=== PATIENT | male | born 1960 | race Caucasian/White ===

== ENCOUNTER 2017-12-22 10:17 | Day surgery (SDC) | payer OTHER ==
[2017-12-22] MEDS ORDERED: PROPOFOL 20 ML (10:25)
[2017-12-22] MEDS ORDERED: PROPOFOL 60 ML (15:06)
[2017-12-22] MEDS ORDERED: LIDOCAINE 2% (SDV) 5 ML INJ (15:06)
== END 2017-12-22 16:22 | disposition home or self-care (01) ==
LOC: GIL 10:17
DX: Z12.11 Encounter for screening for malignant neoplasm of colon (principal); K29.70 Gastritis, unspecified, without bleeding; I85.00 Esophageal varices without bleeding; K76.6 Portal hypertension; K31.89 Other diseases of stomach and duodenum; E66.9 Obesity, unspecified; Z68.36 Body mass index [BMI] 36.0-36.9, adult
CPT/HCPCS: 43239; 88305; 88312

== ENCOUNTER 2018-01-23 08:30 | Emergency (ER) | payer OTHER ==
[2018-01-23 10:57] LABS: ALANINE AMINOTRANSFERASE 23 IU/L (13-69); ALBUMIN 2.8 g/dl (3.3-4.9); ALKALINE PHOSPHATASE 225 IU/L (42-121); ANION GAP 16 (8-16); ASPARTATE AMINO TRANSFERASE 39 IU/L (15-46); BILIRUBIN,INDIRECT 0.8 mg/dl (0-1.1); BILIRUBIN,TOTAL 0.8 mg/dl (0.2-1.3); BLOOD UREA NITROGEN 14 mg/dl (7-20); CALCIUM 8.4 mg/dl (8.4-10.2); CARBON DIOXIDE 24 mmol/L (21-31); CHLORIDE 107 mmol/L (97-110); CREATININE 0.77 mg/dl (0.61-1.24); GLUCOSE 106 mg/dl (70-220); POTASSIUM 3.7 mmol/L (3.5-5.1); SODIUM 143 mmol/L (135-144); TOTAL PROTEIN 6.8 g/dl (6.1-8.1)
[2018-01-23 10:59] LABS: INR 1.47; PROTIME 18.1 Sec (11.9-14.9); PT RATIO 1.4
[2018-01-23 11:00] LABS: PARTIAL THROMBOPLASTIN TIME 49.9 Sec (25.0-35.0)
== END 2018-01-23 12:07 | disposition home or self-care (01) ==
LOC: E/R 08:30
DX: K70.31 Alcoholic cirrhosis of liver with ascites (principal); Z87.891 Personal history of nicotine dependence
CPT/HCPCS: 80053; 85610; 85730; 99283

== ENCOUNTER 2018-04-09 20:58 | Inpatient (IN) | payer OTHER ==
[2018-04-09] MEDS: SOD CHLORIDE 0.9% 1,000 ML IV (21:15)
[2018-04-09 21:34] LABS: ABNORMAL IP MESSAGE 1; HEMATOCRIT 23.9 % (42.0-52.0); MEAN CORPUSCULAR HEMOGLOBIN 21.7 pg (29.0-33.0); MEAN CORPUSCULAR HGB CONC 26.4 g/dl (32.0-37.0); MEAN CORPUSCULAR VOLUME 82.4 fl (82.0-101.0); MEAN PLATELET VOLUME 11.2 fl (7.4-10.4); NUCLEATED RED BLOOD CELLS% 0.7 /100WBC (0.0-0.0); PLATELET COUNT 192 10^3/UL (140-415); POSITIVE DIFF @See below; RED CELL DISTRIBUTION WIDTH 19.8 % (11.5-14.5)
[2018-04-09 21:34] LABS: WHITE BLOOD COUNT 27.4 10^3/ul (4.8-10.8)
[2018-04-09] MEDS ORDERED: NORepinephrine 8MG/250 ML (PMX 250 ML (21:36)
[2018-04-09 21:43] LABS: ADD MAN DIFF? YES; HEMOGLOBIN 6.3 g/dl (14.0-18.0)
[2018-04-09 21:44] LABS: PATH REVIEW? YES
[2018-04-09 21:48] LABS: PROTIME 21.3 Sec (11.9-14.9); PT RATIO 1.7
[2018-04-09 21:55] LABS: ALANINE AMINOTRANSFERASE 35 IU/L (13-69); ALBUMIN 2.4 g/dl (3.3-4.9); ALBUMIN/GLOBULIN RATIO 0.63; ALKALINE PHOSPHATASE 227 IU/L (42-121); ANION GAP 18 (8-16); ASPARTATE AMINO TRANSFERASE 64 IU/L (15-46); BLOOD UREA NITROGEN 46 mg/dl (7-20); CALCIUM 8.5 mg/dl (8.4-10.2); CARBON DIOXIDE 15 mmol/L (21-31); CHLORIDE 111 mmol/L (97-110); CREATININE 3.29 mg/dl (0.61-1.24); SODIUM 138 mmol/L (135-144); TOTAL PROTEIN 6.2 g/dl (6.1-8.1)
[2018-04-09 22:04] LABS: B-TYPE NATRIURETIC PEPTIDE 2030 PG/ML (0-125)
[2018-04-09 22:09] LABS: TROPONIN-I < 0.012 ng/ml (0.000-0.120)
[2018-04-09 22:11] LABS: AADO2 Arterial 553.9 mmHg (7.0-24.0); Allen Test ACCEPTAB; Arterial Base Excess -16.4 mmol/L (-3.0-3); Arterial COHb 1.6 % (0.0-3.0); Arterial Fraction of Oxyhgb 93.8 % (93.0-99.0); Arterial HCO3 12.9 mmol/L (22.0-26.0); Arterial MetHb 0.7 % (0.0-1.5); Arterial Total Hemglobin 6.9 g/dl (12.0-18.0); Arterial pCO2 48.1 mmhg (35-45); GLUCOSE 42 mg/dl (70-220); MODE VENT - AC; POTASSIUM 6.3 mmol/L (3.5-5.1); Site Right Radial
[2018-04-09] MEDS: NORepinephrine 8MG/250 ML (PMX 250 ML IV (22:17)
[2018-04-09] MEDS: SODIUM CHLORIDE 0.9% 500 ML BAG IV* (22:18)
[2018-04-09 22:20] LABS: PARTIAL THROMBOPLASTIN TIME 81.5 Sec (25.0-35.0)
[2018-04-09] MEDS: DEXTROSE 50% 50 ML SYRINGE IV (22:31)
[2018-04-09 22:34] LABS: PHOSPHORUS 9.2 mg/dl (2.5-4.9)
[2018-04-09 22:34] LABS: MAGNESIUM 2.8 mg/dl (1.7-2.5)
[2018-04-09 23:14] LABS: ADD UMIC YES; UR ASCORBIC ACID 40 mg/dL (NEGATIVE); UR BACTERIA FEW /HPF (NONE SEEN); UR BILIRUBIN (Dip) NEGATIVE (NEGATIVE); UR BLOOD (Dip) NEGATIVE (NEGATIVE); UR CLARITY SLIGHTLY CLOUDY (CLEAR); UR COLOR YELLOW (YELLOW); UR GLUCOSE (Dip) NEGATIVE (NEGATIVE); UR HYALINE CAST FEW /HPF (NONE SEEN); UR KETONES (Dip) NEGATIVE (NEGATIVE); UR LEUKOCYTE ESTERASE (Dip) TRACE Leu/ul (NEGATIVE); UR NITRITE (Dip) NEGATIVE (NEGATIVE); UR RBC 0 /HPF (0-5); UR SPECIFIC GRAVITY (Dip) 1.014 (1.003-1.030); UR TOTAL PROTEIN (Dip) NEGATIVE (NEGATIVE); UR UROBILINOGEN (Dip) NEGATIVE (NEGATIVE); UR WBC 2 /HPF (0-5)
[2018-04-09 23:18] LABS: ANISOCYTOSIS 2+ (0-0); BAND NEUTROPHILS #M 9.8 10^3/ul (0.0-0.6); BAND NEUTROPHILS % (M) 36 % (0-4); ECHINOCYTOSIS 1+ (0-0); EOSINOPHILS % (M) 2 % (0-7); HYPOCHROMASIA 2+ (0-0); LYMPHOCYTES #M 5.7 10^3/ul (0.8-2.9); LYMPHOCYTES % (M) 21 % (15-51); METAMYELOCYTES #M 0.2 10^3/ul (0.0-0.0); METAMYELOCYTES %M 1 % (0-0); MICROCYTOSIS 1+ (0-0); MONOCYTE #M 0.5 10^3/ul (0.3-0.9); MONOCYTES % (M) 2 % (0-11); MYELOCYTES #M 0.5 10^3/ul (0.0-0.0); MYELOCYTES % (M) 2 % (0-0); OVALOCYTES 1+ (0-0); PLATELET ESTIMATE NORMAL; POIKILOCYTOSIS 1+ (0-0); POLYCHROMASIA 2+ (0-0); SEG NEUT #M 12.5 10^3/ul (1.6-7.5); SEGMENTED NEUTROPHILS (M) % 36 % (39-77); SMUDGE%M 4 % (0-0)
[2018-04-10] LABS: AMYLASE 376 U/L (11-123)
[2018-04-10] LABS: CREATINE KINASE 87 IU/L (23-200); LIPASE 1501 U/L (23-300)
[2018-04-10] MEDS: SOD CHLORIDE 0.9% 1,000 ML IV (00:01)
[2018-04-10 00:13] LABS: CK INDEX 2.4; TROPONIN-I 0.052 ng/ml (0.000-0.120)
[2018-04-10 00:20] LABS: CK-MB 2.08 ng/ml (0.0-2.4)
[2018-04-10] MEDS ORDERED: ACETAMINOPHEN 325 MG TAB PO ×2 (00:30→01:00)
[2018-04-10] MEDS ORDERED: ONDANSETRON 4 MG INJ IV ×2 (00:30→01:00)
[2018-04-10 00:41] LABS: D-DIMER > 10000.00 ng/ml (<460)
[2018-04-10 00:47] LABS: LACTIC ACID 6.1 mmol/L (0.5-2.0)
[2018-04-10] MEDS: DOCUSATE SODIUM 100 MG CAP PO ×2 (01:00→13:00)
[2018-04-10] MEDS ORDERED: PROPOFOL 100 ML IV (01:00)
[2018-04-10] MEDS ORDERED: ALBUTEROL HFA 8 GM INHALER INH (01:00)
[2018-04-10] MEDS ORDERED: ACETAMINOPHEN 650 MG SUPP PR (01:00)
[2018-04-10] MEDS ORDERED: LORAZEPAM 2 MG INJ IV (01:00)
[2018-04-10] MEDS: CEFEPIME 2GM/50 ML (PMX) 50 ML IVPB (01:04)
[2018-04-10 01:18] LABS: IMMEDIATE SPIN CROSSMATCH 1
[2018-04-10] MEDS: NA POLYST SULFON 15 GM/60 ML BTL PO (01:30)
[2018-04-10] MEDS: VANCOMYCIN 1 GM (PMX) 250 ML IVPB (02:17)
[2018-04-10] MEDS: DEXTROSE 5%-0.45% NACL 1,000 ML IV (02:18)
[2018-04-10] MEDS ORDERED: VANCOMYCIN IV PER PHARMACY XX (02:30)
[2018-04-10] MEDS: NORepinephrine 8MG/250 ML (PMX 250 ML IV (02:33)
[2018-04-10 02:35] LABS: AADO2 Arterial 622.1 mmHg (7.0-24.0); Allen Test ACCEPTAB; Arterial Base Excess -14.3 mmol/L (-3.0-3); Arterial Fraction of Oxyhgb 93.4 % (93.0-99.0); Arterial HCO3 13.1 mmol/L (22.0-26.0); Arterial MetHb 0.7 % (0.0-1.5); Arterial Total Hemglobin 7.5 g/dl (12.0-18.0); Arterial pCO2 30.8 mmhg (35-45); MODE VENT - AC; Site Right Radial; Temperature 32.9 C
[2018-04-10 03:08] LABS: LACTIC ACID 6.1 mmol/L (0.5-2.0)
[2018-04-10] MEDS: PHENYLephrine 20MG IN 250 ML 250 ML IV ×3 (03:13→06:02)
[2018-04-10] MEDS: CALCIUM GLUCONATE 10% 1 GM in DEXTROSE 5% 100 ML IVPB (03:43)
[2018-04-10] MEDS ORDERED: DEXTROSE 50% 50 ML SYRINGE IV (04:30)
[2018-04-10] MEDS ORDERED: DOPamine-D5W 1.6 MG/ML 250 ML ×2 (04:36→11:54)
[2018-04-10] MEDS: DOPamine-D5W 1.6 MG/ML 250 ML IV ×2 (04:48→08:55)
[2018-04-10] MEDS: DEXTROSE 50% 50 ML SYRINGE IV (04:56)
[2018-04-10] MEDS: PIPER-TAZO 2.25 GM (PMX) 50 ML IVPB ×4 (04:56→20:48)
[2018-04-10] MEDS: ACCU-CHEK XX ×18 (04:58→23:00)
[2018-04-10] MEDS ORDERED: VECURONIUM 100 MG in DEXTROSE 5% 100 ML IV (05:00)
[2018-04-10] MEDS: MIDAZOLAM (DRIP) 50 mg/50 mL 50 ML IV ×4 (05:34→22:09)
[2018-04-10 05:56] LABS: ABNORMAL IP MESSAGE 1; HEMATOCRIT 26.3 % (42.0-52.0); HEMOGLOBIN 7.3 g/dl (14.0-18.0); MEAN CORPUSCULAR HEMOGLOBIN 22.6 pg (29.0-33.0); MEAN CORPUSCULAR HGB CONC 27.8 g/dl (32.0-37.0); MEAN CORPUSCULAR VOLUME 81.4 fl (82.0-101.0); MEAN PLATELET VOLUME 11.1 fl (7.4-10.4); NUCLEATED RED BLOOD CELLS% 0.3 /100WBC (0.0-0.0); PLATELET COUNT 196 10^3/UL (140-415); POSITIVE DIFF @See below; RED BLOOD COUNT 3.23 10^6/ul (4.70-6.10); RED CELL DISTRIBUTION WIDTH 19.3 % (11.5-14.5)
[2018-04-10 05:56] LABS: WHITE BLOOD COUNT 23.7 10^3/ul (4.8-10.8)
[2018-04-10 06:16] LABS: ADD MAN DIFF? YES
[2018-04-10 06:21] LABS: INR 2.32; PROTIME 26.1 Sec (11.9-14.9)
[2018-04-10 06:22] LABS: AMYLASE 358 U/L (11-123); LIPASE 799 U/L (23-300); PARTIAL THROMBOPLASTIN TIME 61.4 Sec (25.0-35.0)
[2018-04-10 06:38] LABS: TROPONIN-I 0.141 ng/ml (0.000-0.120)
[2018-04-10] MEDS: VANCOMYCIN 1 GM in 250 ML IVPB (06:43)
[2018-04-10 06:50] LABS: ALBUMIN/GLOBULIN RATIO 0.54; ANION GAP 16 (8-16)
[2018-04-10] MEDS ORDERED: IPRATROPIUM (NEB) 0.5 MG/2.5 ML AMP INH (07:00)
[2018-04-10 07:10] LABS: LACTIC ACID 6.3 mmol/L (0.5-2.0)
[2018-04-10 07:10] LABS: ASPARTATE AMINO TRANSFERASE 155 IU/L (15-46); BLOOD UREA NITROGEN 47 mg/dl (7-20); CARBON DIOXIDE 14 mmol/L (21-31); CHLORIDE 114 mmol/L (97-110); CREATININE 3.45 mg/dl (0.61-1.24); GLUCOSE 109 mg/dl (70-220); MAGNESIUM 2.1 mg/dl (1.7-2.5); POTASSIUM 5.1 mmol/L (3.5-5.1); SODIUM 139 mmol/L (135-144)
[2018-04-10 07:11] LABS: ALANINE AMINOTRANSFERASE 67 IU/L (13-69); ALBUMIN 1.7 g/dl (3.3-4.9); ALKALINE PHOSPHATASE 147 IU/L (42-121); BILIRUBIN,INDIRECT 1.3 mg/dl (0-1.1); BILIRUBIN,TOTAL 1.3 mg/dl (0.2-1.3); TOTAL PROTEIN 4.8 g/dl (6.1-8.1)
[2018-04-10] MEDS: PHENYLephrine 80 MG in DEXTROSE 5% 492 ML IV ×4 (07:13→20:12)
[2018-04-10] MEDS: NORepinephrine 32 MG in DEXTROSE 5% 218 ML IV ×2 (07:22→21:02)
[2018-04-10] MEDS: VASOPRESSIN 60 UNIT in DEXTROSE 5% 57 ML IV ×2 (07:38→19:00)
[2018-04-10] MEDS: FAMOTIDINE 20 MG INJ IV (08:34)
[2018-04-10 08:42] LABS: PHOSPHORUS 6.8 mg/dl (2.5-4.9)
[2018-04-10 09:09] LABS: AADO2 Arterial 615.2 mmHg (7.0-24.0); Allen Test ACCEPTAB; Arterial Base Excess -17.7 mmol/L (-3.0-3); Arterial Blood Gas Oxygen Sat 95.8 mmHG (95.0-98.0); Arterial COHb 0.9 % (0.0-3.0); Arterial Fraction of Oxyhgb 94.6 % (93.0-99.0); Arterial HCO3 10.6 mmol/L (22.0-26.0); Arterial MetHb 0.4 % (0.0-1.5); Arterial pCO2 29.4 mmhg (35-45); MODE VENT - AC; Site Right Radial; Temperature 33.1 C
[2018-04-10] MEDS: NA BICARBONATE 8.4% 50 ML SYG IV ×2 (09:27→15:41)
[2018-04-10] MEDS: morphine 2 MG INJ IV (09:34)
[2018-04-10 11:00] LABS: IMMEDIATE SPIN CROSSMATCH 1 5
[2018-04-10] MEDS: SODIUM BICARBONATE (IV ADD) 100 MEQ in DEXTROSE 5% 1,000 ML IV ×3 (11:14→22:29)
[2018-04-10 12:23] LABS: WHITE BLOOD COUNT 25.3 10^3/ul (4.8-10.8)
[2018-04-10 12:23] LABS: ABNORMAL IP MESSAGE 1; ADD MAN DIFF? YES; HEMATOCRIT 27.1 % (42.0-52.0); HEMOGLOBIN 7.8 g/dl (14.0-18.0); MEAN CORPUSCULAR HEMOGLOBIN 24.1 pg (29.0-33.0); MEAN CORPUSCULAR HGB CONC 28.8 g/dl (32.0-37.0); MEAN CORPUSCULAR VOLUME 83.6 fl (82.0-101.0); NUCLEATED RED BLOOD CELLS% 0.2 /100WBC (0.0-0.0); PLATELET COUNT 152 10^3/UL (140-415); POSITIVE DIFF @See below; RED BLOOD COUNT 3.24 10^6/ul (4.70-6.10); RED CELL DISTRIBUTION WIDTH 18.8 % (11.5-14.5)
[2018-04-10 12:32] LABS: AMYLASE 301 U/L (11-123); ANION GAP 22 (8-16); BLOOD UREA NITROGEN 45 mg/dl (7-20); CALCIUM 7.6 mg/dl (8.4-10.2); CARBON DIOXIDE 13 mmol/L (21-31); CHLORIDE 105 mmol/L (97-110); CREATININE 3.04 mg/dl (0.61-1.24); GLUCOSE 233 mg/dl (70-220); LIPASE 481 U/L (23-300); POTASSIUM 5.1 mmol/L (3.5-5.1); SODIUM 135 mmol/L (135-144)
[2018-04-10 12:35] LABS: INR 2.42; PT RATIO 2.1
[2018-04-10] MEDS: FENTAnyl (DRIP) 1000 mcg/100mL 100 ML IV (12:35)
[2018-04-10] MEDS: DOPamine 1,600 MG in DEXTROSE 5% 210 ML IV ×2 (12:35→21:03)
[2018-04-10 12:36] LABS: PARTIAL THROMBOPLASTIN TIME 61.1 Sec (25.0-35.0)
[2018-04-10 12:37] LABS: PARTIAL THROMBOPLASTIN TIME 61.1 Sec (25.0-35.0)
[2018-04-10 12:43] LABS: TROPONIN-I 0.084 ng/ml (0.000-0.120)
[2018-04-10] MEDS: INSULIN HUMAN REGULAR 100 UNIT in SOD CHLORIDE 0.9% 99 ML IV (13:46)
[2018-04-10 13:47] LABS: ANISOCYTOSIS 2+ (0-0); BAND NEUTROPHILS #M 10.6 10^3/ul (0.0-0.6); BAND NEUTROPHILS % (M) 42 % (0-4); HYPOCHROMASIA 1+ (0-0); LYMPHOCYTES #M 1.2 10^3/ul (0.8-2.9); LYMPHOCYTES % (M) 5 % (15-51); MICROCYTOSIS 1+ (0-0); MONOCYTE #M 0.5 10^3/ul (0.3-0.9); MONOCYTES % (M) 2 % (0-11); PLATELET ESTIMATE NORMAL; POIKILOCYTOSIS 3+ (0-0); POLYCHROMASIA 3+ (0-0); SEG NEUT #M 15.6 10^3/ul (1.6-7.5); SEGMENTED NEUTROPHILS (M) % 51 % (39-77); SMUDGE%M 3 % (0-0)
[2018-04-10 15:06] LABS: AADO2 Arterial 633.6 mmHg (7.0-24.0); Allen Test ACCEPTAB; Arterial Blood Gas Oxygen Sat 90.7 mmHG (95.0-98.0); Arterial COHb 0.8 % (0.0-3.0); Arterial Fraction of Oxyhgb 89.6 % (93.0-99.0); Arterial HCO3 10.5 mmol/L (22.0-26.0); Arterial MetHb 0.4 % (0.0-1.5); Arterial Total Hemglobin 9.2 g/dl (12.0-18.0); Arterial pCO2 33.6 mmhg (35-45); MODE VENT - AC; Site Right Radial; Temperature 33.1 C
[2018-04-10 18:35] LABS: CREATINE KINASE 309 IU/L (23-200)
[2018-04-10 18:46] LABS: CK INDEX 4.6; TROPONIN-I 0.046 ng/ml (0.000-0.120)
[2018-04-10 19:30] LABS: 50/50 PTT 1 HOUR 40.4 Sec
[2018-04-10 21:10] LABS: Allen Test ACCEPTAB; MODE VENT - AC
[2018-04-11] MEDS: PHENYLephrine 80 MG in DEXTROSE 5% 492 ML IV ×6 (00:37→22:16)
[2018-04-11] MEDS: DOCUSATE SODIUM 100 MG CAP PO ×2 (00:38→12:28)
[2018-04-11] MEDS: ACCU-CHEK XX ×24 (00:58→23:00)
[2018-04-11 01:07] LABS: WHITE BLOOD COUNT 31.8 10^3/ul (4.8-10.8)
[2018-04-11 01:07] LABS: ABNORMAL IP MESSAGE 1; HEMATOCRIT 27.8 % (42.0-52.0); MEAN CORPUSCULAR HEMOGLOBIN 23.7 pg (29.0-33.0); MEAN CORPUSCULAR HGB CONC 28.8 g/dl (32.0-37.0); MEAN CORPUSCULAR VOLUME 82.2 fl (82.0-101.0); MEAN PLATELET VOLUME 12.2 fl (7.4-10.4); NUCLEATED RED BLOOD CELLS% 0.3 /100WBC (0.0-0.0); PLATELET COUNT 137 10^3/UL (140-415); POSITIVE DIFF @See below; RED BLOOD COUNT 3.38 10^6/ul (4.70-6.10); RED CELL DISTRIBUTION WIDTH 18.1 % (11.5-14.5)
[2018-04-11 01:10] LABS: ADD MAN DIFF? YES
[2018-04-11 01:26] LABS: CREATINE KINASE 224 IU/L (23-200); PROTIME 30.3 Sec (11.9-14.9); PT RATIO 2.4
[2018-04-11 01:27] LABS: AMYLASE 223 U/L (11-123); ANION GAP 22 (8-16); BLOOD UREA NITROGEN 47 mg/dl (7-20); CALCIUM 7.7 mg/dl (8.4-10.2); CARBON DIOXIDE 14 mmol/L (21-31); CHLORIDE 102 mmol/L (97-110); CREATININE 3.43 mg/dl (0.61-1.24); GLUCOSE 226 mg/dl (70-220); LIPASE 249 U/L (23-300); PARTIAL THROMBOPLASTIN TIME 60.6 Sec (25.0-35.0); POTASSIUM 4.9 mmol/L (3.5-5.1); SODIUM 133 mmol/L (135-144)
[2018-04-11 01:39] LABS: CK INDEX 7.5; TROPONIN-I 0.027 ng/ml (0.000-0.120)
[2018-04-11 01:40] LABS: TROPONIN-I 0.028 ng/ml (0.000-0.120)
[2018-04-11 01:54] LABS: ANISOCYTOSIS 1+ (0-0); BAND NEUTROPHILS % (M) 41 % (0-4); BURR CELLS 2+ (0-0); GIANT THROMBO% (M) 1 % (0-0); LYMPHOCYTES #M 1.5 10^3/ul (0.8-2.9); LYMPHOCYTES % (M) 5 % (15-51); METAMYELOCYTES #M 3.1 10^3/ul (0.0-0.0); METAMYELOCYTES %M 10 % (0-0); MICROCYTOSIS 1+ (0-0); OVALOCYTES 1+ (0-0); PLATELET ESTIMATE NORMAL; PLATELET MORPHOLOGY COMMENT @See below; POIKILOCYTOSIS 1+ (0-0); POLYCHROMASIA 1+ (0-0); SCHISTOCYTES 1+ (0-0); SEG NEUT #M 18.4 10^3/ul (1.6-7.5); SEGMENTED NEUTROPHILS (M) % 45 % (39-77); SMUDGE%M 1 % (0-0); TEAR DROP CELLS 1+ (0-0)
[2018-04-11] MEDS: PIPER-TAZO 2.25 GM (PMX) 50 ML IVPB ×2 (03:35→08:41)
[2018-04-11] MEDS: VASOPRESSIN 60 UNIT in DEXTROSE 5% 57 ML IV (03:40)
[2018-04-11] MEDS: INSULIN HUMAN REGULAR 100 UNIT in SOD CHLORIDE 0.9% 99 ML IV (03:41)
[2018-04-11 03:46] LABS: AADO2 Arterial 647.7 mmHg (7.0-24.0); Allen Test ACCEPTAB; Arterial Base Excess -14.6 mmol/L (-3.0-3); Arterial Blood Gas Oxygen Sat 81.6 mmHG (95.0-98.0); Arterial COHb 0.4 % (0.0-3.0); Arterial Fraction of Oxyhgb 80.9 % (93.0-99.0); Arterial HCO3 13.7 mmol/L (22.0-26.0); Arterial MetHb 0.4 % (0.0-1.5); Arterial Total Hemglobin 9.2 g/dl (12.0-18.0); Arterial pCO2 35.7 mmhg (35-45); MODE VENT - AC; Site Right Radial; Temperature 33.1 C
[2018-04-11 03:48] LABS: AADO2 Arterial 632.6 mmHg (7.0-24.0); Arterial Blood Gas Oxygen Sat 88.6 mmHG (95.0-98.0); Arterial COHb 0.5 % (0.0-3.0); Arterial Fraction of Oxyhgb 87.7 % (93.0-99.0); Arterial HCO3 13.3 mmol/L (22.0-26.0); Arterial MetHb 0.5 % (0.0-1.5); Arterial Total Hemglobin 9.1 g/dl (12.0-18.0); Arterial pCO2 39.9 mmhg (35-45)
[2018-04-11] MEDS: SODIUM BICARBONATE (IV ADD) 100 MEQ in DEXTROSE 5% 1,000 ML IV ×3 (05:30→20:32)
[2018-04-11] MEDS: MIDAZOLAM (DRIP) 50 mg/50 mL 50 ML IV ×3 (05:32→18:36)
[2018-04-11] MEDS: FENTAnyl (DRIP) 1000 mcg/100mL 100 ML IV ×2 (05:36→15:23)
[2018-04-11 06:07] LABS: WHITE BLOOD COUNT 34.8 10^3/ul (4.8-10.8)
[2018-04-11 06:07] LABS: ABNORMAL IP MESSAGE 1; HEMATOCRIT 27.4 % (42.0-52.0); HEMOGLOBIN 7.8 g/dl (14.0-18.0); MEAN CORPUSCULAR HEMOGLOBIN 23.3 pg (29.0-33.0); MEAN CORPUSCULAR HGB CONC 28.5 g/dl (32.0-37.0); MEAN CORPUSCULAR VOLUME 81.8 fl (82.0-101.0); MEAN PLATELET VOLUME 11.3 fl (7.4-10.4); NUCLEATED RED BLOOD CELLS% 0.3 /100WBC (0.0-0.0); PLATELET COUNT 123 10^3/UL (140-415); POSITIVE DIFF @See below; RED BLOOD COUNT 3.35 10^6/ul (4.70-6.10); RED CELL DISTRIBUTION WIDTH 17.8 % (11.5-14.5)
[2018-04-11 06:24] LABS: ADD MAN DIFF? YES
[2018-04-11 06:25] LABS: INR 3.23; PT RATIO 2.7
[2018-04-11 06:26] LABS: PARTIAL THROMBOPLASTIN TIME 62.3 Sec (25.0-35.0)
[2018-04-11 06:36] LABS: IRON 21 ug/dl (35-150)
[2018-04-11 06:37] LABS: AMYLASE 164 U/L (11-123); ANION GAP 24 (8-16); BLOOD UREA NITROGEN 47 mg/dl (7-20); CALCIUM 7.7 mg/dl (8.4-10.2); CARBON DIOXIDE 15 mmol/L (21-31); CHLORIDE 100 mmol/L (97-110); CREATININE 3.54 mg/dl (0.61-1.24); GLUCOSE 201 mg/dl (70-220); LIPASE 266 U/L (23-300); MAGNESIUM 1.9 mg/dl (1.7-2.5); POTASSIUM 4.7 mmol/L (3.5-5.1); SODIUM 134 mmol/L (135-144)
[2018-04-11 06:40] LABS: CREATINE KINASE 157 IU/L (23-200)
[2018-04-11 06:42] LABS: TROPONIN-I 0.019 ng/ml (0.000-0.120)
[2018-04-11 06:43] LABS: CK INDEX 9.7; TROPONIN-I 0.019 ng/ml (0.000-0.120)
[2018-04-11 06:45] LABS: % IRON SATURATION 7 % SAT (22-52); TOTAL IRON BINDING CAPACITY 302 ug/dl (241-421)
[2018-04-11 07:07] LABS: FERRITIN 59.2 ng/ml (11.1-264.0)
[2018-04-11] MEDS: NORepinephrine 32 MG in DEXTROSE 5% 218 ML IV (07:13)
[2018-04-11] MEDS: DOPamine 1,600 MG in DEXTROSE 5% 210 ML IV ×2 (07:14→17:34)
[2018-04-11] MEDS: FAMOTIDINE 20 MG INJ IV (08:40)
[2018-04-11 09:07] LABS: ANISOCYTOSIS 1+ (0-0); BAND NEUTROPHILS #M 13.9 10^3/ul (0.0-0.6); BAND NEUTROPHILS % (M) 40 % (0-4); BASOPHIL #M 0.3 10^3/ul (0.0-0.0); BASOPHILS % (M) 1 % (0-2); HYPOCHROMASIA 1+ (0-0); LYMPHOCYTES #M 1.3 10^3/ul (0.8-2.9); LYMPHOCYTES % (M) 4 % (15-51); METAMYELOCYTES %M 3 % (0-0); MONOCYTE #M 0.3 10^3/ul (0.3-0.9); MONOCYTES % (M) 1 % (0-11); MYELOCYTES #M 0.3 10^3/ul (0.0-0.0); MYELOCYTES % (M) 1 % (0-0); PLATELET ESTIMATE DECREASED; POIKILOCYTOSIS 3+ (0-0); POLYCHROMASIA 3+ (0-0); SEG NEUT #M 22.2 10^3/ul (1.6-7.5); SEGMENTED NEUTROPHILS (M) % 50 % (39-77)
[2018-04-11 10:00] LABS: AADO2 Arterial 634.4 mmHg (7.0-24.0); Allen Test ACCEPTAB; Arterial Base Excess -11.6 mmol/L (-3.0-3); Arterial COHb 0.3 % (0.0-3.0); Arterial Fraction of Oxyhgb 80.4 % (93.0-99.0); Arterial MetHb 0.5 % (0.0-1.5); Arterial Total Hemglobin 9.1 g/dl (12.0-18.0); MODE VENT - AC; Site Right Radial; Temperature 34.9 C
[2018-04-11] MEDS: NA BICARBONATE 8.4% 50 ML SYG IV (10:00)
[2018-04-11] MEDS: CEFEPIME 1GM/50 ML (PMX) 50 ML IVPB (11:08)
[2018-04-11 13:29] LABS: WHITE BLOOD COUNT 37.2 10^3/ul (4.8-10.8)
[2018-04-11 13:29] LABS: ABNORMAL IP MESSAGE 1; HEMATOCRIT 26.3 % (42.0-52.0); HEMOGLOBIN 7.9 g/dl (14.0-18.0); MEAN CORPUSCULAR HEMOGLOBIN 23.9 pg (29.0-33.0); MEAN CORPUSCULAR VOLUME 79.7 fl (82.0-101.0); MEAN PLATELET VOLUME 11.2 fl (7.4-10.4); NUCLEATED RED BLOOD CELLS% 0.5 /100WBC (0.0-0.0); PLATELET COUNT 118 10^3/UL (140-415); POSITIVE DIFF @See below; RED CELL DISTRIBUTION WIDTH 17.9 % (11.5-14.5)
[2018-04-11 13:34] LABS: ADD MAN DIFF? YES
[2018-04-11 13:47] LABS: AMYLASE 164 U/L (11-123); ANION GAP 17 (8-16); BLOOD UREA NITROGEN 47 mg/dl (7-20); CALCIUM 7.4 mg/dl (8.4-10.2); CARBON DIOXIDE 19 mmol/L (21-31); CHLORIDE 102 mmol/L (97-110); CREATININE 3.86 mg/dl (0.61-1.24); GLUCOSE 137 mg/dl (70-220); LIPASE 302 U/L (23-300); MAGNESIUM 1.7 mg/dl (1.7-2.5); POTASSIUM 4.7 mmol/L (3.5-5.1); SODIUM 133 mmol/L (135-144)
[2018-04-11 13:51] LABS: INR 3.96; PARTIAL THROMBOPLASTIN TIME 63.1 Sec (25.0-35.0); PT RATIO 3.1
[2018-04-11 13:58] LABS: TROPONIN-I 0.013 ng/ml (0.000-0.120)
[2018-04-11 14:19] LABS: ANISOCYTOSIS 1+ (0-0); BAND NEUTROPHILS #M 18.9 10^3/ul (0.0-0.6); BAND NEUTROPHILS % (M) 51 % (0-4); ERYTHROBLAST% (NRBC) (M) 1 % (0-0); HYPOCHROMASIA 1+ (0-0); LYMPHOCYTES #M 1.4 10^3/ul (0.8-2.9); LYMPHOCYTES % (M) 4 % (15-51); METAMYELOCYTES #M 0.3 10^3/ul (0.0-0.0); METAMYELOCYTES %M 1 % (0-0); MICROCYTOSIS 1+ (0-0); MONOCYTE #M 0.7 10^3/ul (0.3-0.9); MONOCYTES % (M) 2 % (0-11); PLATELET ESTIMATE DECREASED; POIKILOCYTOSIS 2+ (0-0); POLYCHROMASIA 3+ (0-0); SEG NEUT #M 22.7 10^3/ul (1.6-7.5); SEGMENTED NEUTROPHILS (M) % 42 % (39-77)
[2018-04-11 17:56] LABS: ABNORMAL IP MESSAGE 1; HEMATOCRIT 26.5 % (42.0-52.0); MEAN CORPUSCULAR HEMOGLOBIN 23.8 pg (29.0-33.0); MEAN CORPUSCULAR HGB CONC 30.2 g/dl (32.0-37.0); MEAN CORPUSCULAR VOLUME 78.9 fl (82.0-101.0); MEAN PLATELET VOLUME 11.2 fl (7.4-10.4); NUCLEATED RED BLOOD CELLS% 0.7 /100WBC (0.0-0.0); PLATELET COUNT 116 10^3/UL (140-415); POSITIVE DIFF @See below; RED BLOOD COUNT 3.36 10^6/ul (4.70-6.10); RED CELL DISTRIBUTION WIDTH 18.3 % (11.5-14.5)
[2018-04-11 17:56] LABS: WHITE BLOOD COUNT 39.2 10^3/ul (4.8-10.8)
[2018-04-11 18:02] LABS: ADD MAN DIFF? YES
[2018-04-11 18:18] LABS: AMYLASE 160 U/L (11-123); ANION GAP 20 (8-16); BLOOD UREA NITROGEN 49 mg/dl (7-20); CALCIUM 7.2 mg/dl (8.4-10.2); CARBON DIOXIDE 21 mmol/L (21-31); CHLORIDE 96 mmol/L (97-110); CREATININE 3.86 mg/dl (0.61-1.24); GLUCOSE 131 mg/dl (70-220); LIPASE 345 U/L (23-300); MAGNESIUM 1.7 mg/dl (1.7-2.5); POTASSIUM 4.8 mmol/L (3.5-5.1); SODIUM 132 mmol/L (135-144)
[2018-04-11 18:19] LABS: INR 4.02; PROTIME 40.5 Sec (11.9-14.9); PT RATIO 3.2
[2018-04-11 18:20] LABS: PARTIAL THROMBOPLASTIN TIME 63.8 Sec (25.0-35.0)
[2018-04-11 18:27] LABS: TROPONIN-I 0.013 ng/ml (0.000-0.120)
[2018-04-11] MEDS ORDERED: FENTAnyl (DRIP) 1000 mcg/100mL 100 ML IV (19:00)
[2018-04-11 19:07] LABS: ANISOCYTOSIS 2+ (0-0); BAND NEUTROPHILS #M 17.2 10^3/ul (0.0-0.6); BAND NEUTROPHILS % (M) 44 % (0-4); BURR CELLS 1+ (0-0); ERYTHROBLAST% (NRBC) (M) 1 % (0-0); HYPOCHROMASIA 1+ (0-0); LYMPHOCYTES #M 2.7 10^3/ul (0.8-2.9); LYMPHOCYTES % (M) 7 % (15-51); METAMYELOCYTES #M 1.1 10^3/ul (0.0-0.0); METAMYELOCYTES %M 3 % (0-0); MICROCYTOSIS 1+ (0-0); MYELOCYTES #M 0.3 10^3/ul (0.0-0.0); MYELOCYTES % (M) 1 % (0-0); PLATELET ESTIMATE DECREASED; POIKILOCYTOSIS 1+ (0-0); POLYCHROMASIA 1+ (0-0); SEG NEUT #M 24.4 10^3/ul (1.6-7.5); SEGMENTED NEUTROPHILS (M) % 45 % (39-77); SMUDGE%M 2 % (0-0)
[2018-04-11 21:39] LABS: AADO2 Arterial 616.9 mmHg (7.0-24.0); Arterial Blood Gas Oxygen Sat 67.1 mmHG (95.0-98.0); Arterial COHb 0.2 % (0.0-3.0); Arterial Fraction of Oxyhgb 66.6 % (93.0-99.0); Arterial HCO3 19.2 mmol/L (22.0-26.0); Arterial MetHb 0.5 % (0.0-1.5); Arterial pCO2 53.4 mmhg (35-45); MODE AMBU BAG; Site Right Brachial
[2018-04-11] MEDS ORDERED: PHENYLephrine 80 MG in DEXTROSE 5% 242 ML IV (23:30)
[2018-04-12] MEDS: ACCU-CHEK XX ×3 (00:02→02:15)
[2018-04-12] MEDS: VASOPRESSIN 60 UNIT in DEXTROSE 5% 57 ML IV (00:03)
[2018-04-12] MEDS: NORepinephrine 32 MG in DEXTROSE 5% 218 ML IV (00:04)
[2018-04-12] MEDS: DOCUSATE SODIUM 100 MG CAP PO (01:00)
[2018-04-12 01:11] LABS: ABNORMAL IP MESSAGE 1; HEMATOCRIT 24.3 % (42.0-52.0); HEMOGLOBIN 7.4 g/dl (14.0-18.0); MEAN CORPUSCULAR HEMOGLOBIN 23.4 pg (29.0-33.0); MEAN CORPUSCULAR HGB CONC 30.5 g/dl (32.0-37.0); MEAN CORPUSCULAR VOLUME 76.9 fl (82.0-101.0); MEAN PLATELET VOLUME 11.8 fl (7.4-10.4); NUCLEATED RED BLOOD CELLS% 1.4 /100WBC (0.0-0.0); PLATELET COUNT 97 10^3/UL (140-415); POSITIVE DIFF @See below; RED BLOOD COUNT 3.16 10^6/ul (4.70-6.10); RED CELL DISTRIBUTION WIDTH 18.5 % (11.5-14.5)
[2018-04-12 01:11] LABS: WHITE BLOOD COUNT 32.5 10^3/ul (4.8-10.8)
[2018-04-12 01:25] LABS: ADD MAN DIFF? YES
[2018-04-12 01:26] LABS: INR 4.69; PROTIME 45.8 Sec (11.9-14.9); PT RATIO 3.6
[2018-04-12 01:27] LABS: PARTIAL THROMBOPLASTIN TIME 67.6 Sec (25.0-35.0)
[2018-04-12 01:37] LABS: ANION GAP 18 (8-16)
[2018-04-12 01:44] LABS: AMYLASE 156 U/L (11-123); BLOOD UREA NITROGEN 48 mg/dl (7-20); CALCIUM 7.2 mg/dl (8.4-10.2); CARBON DIOXIDE 19 mmol/L (21-31); CHLORIDE 98 mmol/L (97-110); CREATININE 4.28 mg/dl (0.61-1.24); GLUCOSE 131 mg/dl (70-220); LIPASE 474 U/L (23-300); MAGNESIUM 1.6 mg/dl (1.7-2.5); POTASSIUM 4.7 mmol/L (3.5-5.1); SODIUM 130 mmol/L (135-144)
[2018-04-12 01:51] LABS: TROPONIN-I 0.017 ng/ml (0.000-0.120)
[2018-04-12 02:23] LABS: BAND NEUTROPHILS #M 5.5 10^3/ul (0.0-0.6); BAND NEUTROPHILS % (M) 17 % (0-4); LYMPHOCYTES #M 0.6 10^3/ul (0.8-2.9); LYMPHOCYTES % (M) 2 % (15-51); MONOCYTE #M 0.6 10^3/ul (0.3-0.9); MONOCYTES % (M) 2 % (0-11); REACTIVE LYMPHOCYTES #M 2.6 10^3/ul (0.0-0.0); REACTIVE LYMPHOCYTES% (M) 8 % (0-0); SEG NEUT #M 24.9 10^3/ul (1.7-7.5); SEGMENTED NEUTROPHILS (M) % 71 % (39-77)
[2018-04-12] MEDS ORDERED: MAGNESIUM SULFATE 2 GM/50 ML 50 ML IVPB (02:30)
[2018-04-12] MEDS ORDERED: MAGNESIUM SULFATE 2 GM/50 ML 50 ML (02:35)
[2018-04-12] MEDS ORDERED: morphine (DRIP) 100 MG/100 ML 100 ML IV (03:00)
== END 2018-04-12 03:49 | disposition expired | DRG 871 ==
LOC: ICU 04-10 00:03 → E/R 20:58
PROVIDERS: Internal Medicine
PROC: 06HY33Z Insertion of Infusion Device into Lower Vein, Percutaneous Approach (ICD-10-PCS; principal; 2018-04-10)
PROC: 5A1945Z Respiratory Ventilation, 24-96 Consecutive Hours (ICD-10-PCS; 2018-04-10)
DX: A41.9 Sepsis, unspecified organism (principal); R65.21 Severe sepsis with septic shock; J96.90 Respiratory failure, unspecified, unspecified whether with hypoxia or hypercapnia; J18.9 Pneumonia, unspecified organism; N17.0 Acute kidney failure with tubular necrosis; E87.2 Acidosis; R57.0 Cardiogenic shock; K70.30 Alcoholic cirrhosis of liver without ascites; D64.9 Anemia, unspecified; D69.6 Thrombocytopenia, unspecified; I25.10 Atherosclerotic heart disease of native coronary artery without angina pectoris; E87.5 Hyperkalemia; Z66 Do not resuscitate
CPT/HCPCS: 36415; 36430; 36600; 71045; 76775; 80048; 80053; 81001; 82150; 82310; 82550; 82553; 82728; 82803; 82962; 83540; 83605; 83690; 83735; 83880; 84100; 84443; 84484; 85025; 85335; 85378; 85384; 85610; 85730; 86850; 86900; 86901; 86920; 87040; 87081; 87086; 93005; 93306; 93970; 94002; 94003; 94770; 96361; 96365; 96366; 96368; 96375; 96376; 99291-25